=== PATIENT | male | born 1950 | race Caucasian/White ===

== ENCOUNTER 2020-12-22 06:44 | Day surgery (SDC) | payer OTHER ==
[~2020-12-22 06:44] MED LIST: AVALIDE 300-12.1 TAB PO; LIVALO2 MG PO; SYNTHROID50 MCG PO
== END 2020-12-22 10:50 | disposition home or self-care (01) ==
LOC: AMB-ENDOS 06:44
PROVIDERS: ATTEND Colon & Rectal Surgery
DX: D12.1 Benign neoplasm of appendix (principal); K64.0 First degree hemorrhoids; Z20.822 Contact with and (suspected) exposure to COVID-19